=== PATIENT | female | born 1965 | race Two or more races ===

== ENCOUNTER 2018-11-22 23:31 | Emergency (ER) | payer OTHER ==
[~2018-11-22] VITALS: Ht 157.5 cm; Wt 55.8 kg
[2018-11-22] MEDS ORDERED: ESTR0.624 (23:45)
[2018-11-22] MEDS ORDERED: TRILEPTAL150 MG (23:45)
[2018-11-22] MEDS ORDERED: CYMBALTA60 MG (23:46)
[2018-11-23] MEDS ORDERED: CYCLOBENZAPRINE10 MG PO (03:02)
== END 2018-11-23 03:11 | disposition home or self-care (01) ==
LOC: ER 23:31
DX: S13.4XXA Sprain of ligaments of cervical spine, initial encounter (principal); V49.9XXA Car occupant (driver) (passenger) injured in unspecified traffic accident, initial encounter; Y93.89 Activity, other specified; Y92.488 Other paved roadways as the place of occurrence of the external cause; Y99.8 Other external cause status

== ENCOUNTER 2019-06-27 10:09 | Emergency (ER) | payer OTHER ==
[~2019-06-27] VITALS: Ht 157.5 cm; Wt 59.9 kg
[~2019-06-27 10:09] MED LIST: CYCLOBENZAPRINE10 MG PO; CYMBALTA60 MG; ESTR0.624; TRILEPTAL150 MG
[2019-06-27] MEDS ORDERED: PEPCID20 MG PO (10:41)
[2019-06-27] MEDS ORDERED: PLAQUENIL PO (10:42)
[2019-06-27] MEDS ORDERED: DIAZEPAM5 MG PO (10:43)
[2019-06-27] MEDS ORDERED: SINGULAIR 10MG10 MG PO (10:44)
== END 2019-06-27 14:21 | disposition home or self-care (01) ==
LOC: ER 10:09
DX: R10.2 Pelvic and perineal pain (principal)

== ENCOUNTER 2019-07-04 02:14 | Inpatient (IN) | payer OTHER ==
[~2019-07-04] VITALS: Ht 73.7 cm; Wt 59.9 kg
[~2019-07-04 02:14] MED LIST changes: +DIAZEPAM5 MG PO; +PEPCID20 MG PO; +PLAQUENIL PO; +SINGULAIR 10MG10 MG PO
--- NOTE | 2019-07-04 02:27 | NUR ---
SE RECIBE PTE ALERTA Y ORIENTADA POR JUANJO EN AMBULANCIA. PTE LLEGA CANALIZADA POR PERSONAL PARAMEDICO EN MANO IZQUIERDA CON ANGIO #24 CON 0.9 NSS DE 250ML, CANALIZACION PATENTE AL MOMENTO DE SOLANO LLEGADA. PARAMEDICOS REFIERE HABERLE ADMINISTRADO TORADOL IV DE 30MG. PTE INDICA PRESENTAR DOLOR EN AREA ABDOMONAL Y LADO DERECHO DE LA PELVIS DESDE TAMARA A LAS 2:30AM.
--- NOTE | 2019-07-04 03:04 | NUR ---
EVALUA PTE. SE ORIENTA A PTE SOBRE TX MEDICO. PTE REFIERE COMPRENDER. SE REALIZAN MUESTRAS DE LABORATORIO BAJO MEDIDAS ASEPTICAS. SE ADMINISTRAN MEDICAMENTOS MARGRET ORDEN MEDICA. SE NOTIFICAN MARTINEZ X. PROCEDIMIENTOS LLEVADOS A CABO POR .
--- NOTE | 2019-07-04 10:55 | NUR ---
PACIENTE ALERTA Y OREINTADA X3 ES EVALUADA POR LA LIDYA.KEO QUIEN ORDENA MEDICACION PARA EL DOLOR Y NAUSEAS, SE ORIENTA A PACIENTE SOBRE TRATAMIENTO, REFIERE ENTENDER, SE EJECUTA ORDEN.
== END 2019-07-06 15:52 | disposition home or self-care (01) | DRG 389 ==
LOC: ER 02:14 → SURH 12:46 → SEC-K 12:46 → SURH 14:09
PROVIDERS: ADMIT Colon & Rectal Surgery
PROC: BW21ZZZ Computerized Tomography (CT Scan) of Abdomen and Pelvis (ICD-10-PCS; principal; 2019-07-04)
DX: K56.51 Intestinal adhesions [bands], with partial obstruction (principal); K40.30 Unilateral inguinal hernia, with obstruction, without gangrene, not specified as recurrent

== ENCOUNTER 2019-07-11 08:27 | Emergency (ER) | payer OTHER ==
[~2019-07-11] VITALS: Ht 157.5 cm; Wt 59.9 kg
[2019-07-11] MEDS ORDERED: CYMBALTA60 MG PO (08:42)
[2019-07-11] MEDS ORDERED: NEXIUM20 M1 PO (08:43)
== END 2019-07-11 12:40 | disposition home or self-care (01) ==
LOC: ER 08:27
DX: M65.871 Other synovitis and tenosynovitis, right ankle and foot (principal)